=== PATIENT | male | born 1955 | race African-American/Black ===

== ENCOUNTER 2019-06-12 19:12 | Emergency (ER) | payer SELFPAY ==
[~2019-06-12] VITALS: Ht 190.5 cm; Wt 87.0 kg
[2019-06-12 19:31] VITALS: BP 146/86
[2019-06-12] MEDS ORDERED: ASPIRIN 81MG TABLET PO ONE (21:30)
[2019-06-12] MEDS ORDERED: ACETAMINOPHEN 500MG TABLET PO ONE (21:30)
[2019-06-12 22:53] LABS: BASOPHILS % 0.9 % (0.0-2.0); EOSINOPHILS % 1.9 % (0.0-5.0); HEMATOCRIT. 36.8 % (42.0-52.0); HEMOGLOBIN. 12.3 g/dL (14.0-18.0); LYMPHOCYTES % 21.5 % (20.0-50.0); MEAN CORPUSCULAR HEMOGLOBIN 27.2 pg (28.0-32.0); MEAN CORPUSCULAR VOLUME 81.2 fL (80.0-94.0); MEAN PLATELET VOLUME 7.8 fl (7.4-10.4); MONOCYTES % 7.7 % (2.0-8.0); PLATELET 265 x1000/uL (130-400); RED BLOOD CELL COUNT 4.53 mill/uL (4.7-6.1); RED CELL DISTRIBUTION WIDTH 15.3 % (11.6-14.6)
[2019-06-12 22:58] LABS: CHLORIDE 101 mEq/L (98-107)
== END 2019-06-12 23:32 | disposition home or self-care (01) ==
LOC: ER 19:12
DX: R07.89 Other chest pain (principal); R05 Cough; E11.9 Type 2 diabetes mellitus without complications
CPT/HCPCS: 36415; 71045; 80053; 83880; 84484; 85025; 93005; 99285